=== PATIENT | male | born 1975 | race Caucasian/White ===

== ENCOUNTER 2017-12-06 02:56 | Emergency (ER) | payer BC ==
[~2017-12-06] VITALS: Ht 170.2 cm; Wt 74.8 kg
[2017-12-06] MEDS ORDERED: MORPHINE SULFATE 2 MG/ML SYR IV STA (03:03)
[2017-12-06] MEDS ORDERED: ONDANSETRON HCL INJ 2 MG/ML VIAL IV STA (03:03)
[2017-12-06] MEDS ORDERED: KETOROLAC TROMETHAMINE 30 MG/ML VIAL IV STA (03:03)
[2017-12-06 03:09] LABS: BASOPHILS # (AUTO) 0.1 (0.0-0.1); BASOPHILS % 0.4 % (0.0-1.0); EOSINOPHILS % 0.2 % (0.0-6.0); HEMATOCRIT 43.2 % (38.2-49.6); LYMPHOCYTES # (AUTO) 1.5 (1.0-3.2); LYMPHOCYTES % 12.1 % (18.0-39.1); MEAN CORPUSCULAR HEMOGLOBIN 30.1 pg (28-32); MEAN CORPUSCULAR HGB CONC 34.7 g/dL (31-35); MEAN CORPUSCULAR VOLUME 86.7 fL (81-99); MONOCYTES # (AUTO) 0.6 (0.2-0.8); MONOCYTES % 5.1 % (4.4-11.3); NEUTROPHILS # (AUTO) 10.1 (2.1-6.9); PLATELET COUNT 262 x10e3/uL (140-360); RED BLOOD COUNT 4.98 x10e6/uL (4.3-5.7); RED CELL DISTRIBUTION WIDTH 11.9 % (11.7-14.4)
[2017-12-06] MEDS ORDERED: SODIUM CHLORIDE 0.9% 1000ML 1,000 ML IV ONE (03:15)
[2017-12-06] MEDS ORDERED: SODIUM CHLORIDE 0.9% 1000ML 1,000 ML ONE (03:17)
[2017-12-06 03:25] LABS: ALBUMIN/GLOBULIN RATIO 1.2 (0.8-2.0); ANION GAP 13.8 mmol/L (8-16); CALCIUM 8.8 mg/dL (8.4-10.2); CREATININE, SERUM 1.37 mg/dL (0.72-1.25); POTASSIUM 3.8 mmol/L (3.5-5.1)
[2017-12-06 04:18] LABS: BILIRUBIN,URINE NEGATIVE (NEGATIVE); CLARITY,URINE CLEAR (CLEAR); COLOR,URINE YELLOW (YELLOW); KETONES,URINE 2+ (NEGATIVE); LEUKOCYTE ESTERASE ,URINE NEGATIVE (NEGATIVE); NITRITE,URINE NEGATIVE (NEGATIVE); PROTEIN,URINE DIPSTICK NEGATIVE (NEGATIVE); URINE UROBILINOGEN 0.2 mg/dL (0.2 - 1)
[2017-12-06 04:29] LABS: BACTERIA,URINE RARE /HPF; WBC,URINE (MAN) 0-5 /HPF (0-5)
--- NOTE | 2017-12-06 04:39 | Diagnostic Imaging Report ---
EXAM: CT ABDOMEN AND PELVIS without IV CONTRAST ORDER DATE: 12/06/2017 3:03 AM Time stamp on Exam: 0343 hours INDICATION: Right flank pain COMPARISON: None TECHNIQUE: The abdomen and pelvis were scanned using a multidetector helical scanner. Coronal and sagittal reformations were obtained. Renal stone protocol performed. IV Contrast: None Oral Contrast: None CTDIvol has been reviewed. It is below the limits set by the Radiation Protocol Committee (RPC). FINDINGS: LOWER THORAX: Bibasilar atelectasis. LIVER: No masses BILIARY: Normal gallbladder. No ductal dilation. SPLEEN: No masses PANCREAS: No masses ADRENALS: No nodules RIGHT KIDNEY: Proximal right ureteral stone measuring 4 mm at the L3 level resulting in minimal hydroureteronephrosis and perinephric fat stranding. LEFT KIDNEY: No nephroureterolithiasis or hydronephrosis. GI TRACT: No wall thickening or obstruction. VESSELS: Unremarkable PERITONEUM/RETROPERITONEUM: No free air or fluid LYMPH NODES: No lymphadenopathy REPRODUCTIVE ORGANS: Normal BLADDER: Normal SOFT TISSUES: Normal BONES: Chronic mild compression of the L4 superior endplate. IMPRESSION: Proximal right ureteral stone measuring 4 mm at the L3 level resulting in minimal hydroureteronephrosis and perinephric fat stranding. Signed by: Dr. Dorothea Cortez M.D. on 12/06/2017 4:36 AM
[2017-12-06 05:17] VITALS: BP 135/84
== END 2017-12-06 05:21 | disposition home or self-care (01) ==
LOC: ER 02:56
DX: R10.31 Right lower quadrant pain (principal); R11.2 Nausea with vomiting, unspecified; N20.1 Calculus of ureter
CPT/HCPCS: 36415; 74176; 80053; 81001; 85025; 87086; 99284; J1885; J2270; J2405; J7030